=== PATIENT | female | born 1960 | race Caucasian/White ===

== ENCOUNTER 2016-07-28 09:44 | Emergency (ER) | payer MEDICAID ==
[~2016-07-28] VITALS: Ht 154.9 cm; Wt 68.0 kg
[~2016-07-28 09:44] MED LIST: ALPR0.5T; BECL0.07; METHADONE
[2016-07-28 09:51] VITALS: BP 140/80
== END 2016-07-28 11:28 | disposition left against medical advice (07) ==
LOC: ER 09:46
DX: H61.21 Impacted cerumen, right ear (principal); F17.210 Nicotine dependence, cigarettes, uncomplicated